=== PATIENT | female | born 1970 | race African-American/Black ===

== ENCOUNTER 2019-05-11 11:53 | Emergency (ER) | payer OTHER ==
[~2019-05-11] VITALS: Ht 167.6 cm; Wt 106.0 kg
[2019-05-11 12:22] VITALS: BP 125/76
[2019-05-11 13:04] LABS: MICROSCOPIC INDICATED
--- NOTE | 2019-05-11 13:07 | NUR ---
BACK PAIN AND CHEST PAIN. HANDS ARE GETTING NUMB AND LEFT FACE SEEMS NUMB. STATES NO MEDICAL HX. STATES TOOK ALEVE LAST NIGHT.
--- NOTE | 2019-05-11 13:13 | NUR ---
CORRECTION PATIENT STATES TINGLING NOT NUMB FEELING. PATIENT ON CONTINUOUS SPOUTER AND VS MONITORED
--- NOTE | 2019-05-11 14:27 | NUR ---
Patient/Caregiver given discharge instructions and they have confirmed that they understand the instructions. Patient ambulatory with steady gait. pt left with all personal belongings.
== END 2019-05-11 14:30 | disposition home or self-care (01) ==
LOC: ED 14:00
DX: N30.00 Acute cystitis without hematuria (principal)
CPT/HCPCS: 81001; 99283

== ENCOUNTER 2019-05-14 17:29 | Emergency (ER) | payer SELFPAY ==
[~2019-05-14] VITALS: Ht 167.6 cm; Wt 107.3 kg
[2019-05-14 19:25] LABS: BASOPHILS # (AUTO) 0.03 x10^3/uL (0-0.1); BASOPHILS % (AUTO) 0 % (0-1); EOSINOPHILS # (AUTO) 0.12 x10^3/uL (0-0.4); EOSINOPHILS % (AUTO) 2 % (1-7); LYMPHOCYTES # (AUTO) 2.64 x10^3/uL (1-3.4); LYMPHOCYTES % (AUTO) 40 % (22-44); MD NO; MEAN CORPUSCULAR HEMOGLOBIN 28.4 pg (27.0-34.8); MEAN CORPUSCULAR HGB CONC 31.7 g/dL (32.4-35.8); MEAN CORPUSCULAR VOLUME 89.6 fL (80-100); MEAN PLATELET VOLUME 8.5 fL (7.4-10.4); MONOCYTES # (AUTO) 0.39 x10^3/uL (0.2-0.8); MONOCYTES % (AUTO) 6 % (2-9); NEUTROPHILS # (AUTO) 3.45 x10^3/uL (1.8-6.8); NEUTROPHILS % (AUTO) 52 % (42-75); PLATELET COUNT 254 x10^3/uL (130-400); RED CELL DISTRIBUTION WIDTH 13.4 % (9.6-15.2)
[2019-05-14 19:36] LABS: ALANINE AMINOTRANSFERASE 26 U/L (12-78); ALBUMIN 3.6 g/dL (3.4-5.0); ANION GAP 4 mmol/L (5-15); CALCIUM 8.5 mg/dL (8.5-10.1); CHLORIDE 110 mmol/L (98-107)
[2019-05-14 19:38] LABS: ALKALINE PHOSPHATASE 103 U/L (45-117); BILIRUBIN,TOTAL 0.2 mg/dL (0.2-1.0); CREATININE 0.83 mg/dL (0.55-1.02); TOTAL PROTEIN 7.4 g/dL (6.4-8.2)
[2019-05-14 19:50] LABS: HCG UR SG 1.023 (1.003-1.030)
[2019-05-14 19:57] LABS: CULTURE INDICATED? YES; MICROSCOPIC INDICATED
[2019-05-14] MEDS ORDERED: KETOROLAC 30 MG/1 ML IM ONE (20:00)
--- NOTE | 2019-05-14 20:10 | NUR ---
patient reports not feeling well. When probed further patient still unable to narrow down or describe or pinpoint discomfort. Reports just a general feeling of "Not feeling well." Awaiting urine results and recheck.
[2019-05-14] MEDS ORDERED: KETOROLAC 30 MG/1 ML ONE (20:38)
--- NOTE | 2019-05-14 20:48 | NUR ---
Provided medication per MAR. Still feels "off" prefers lights and tv off. Awaiting response and labs.
[2019-05-14] MEDS ORDERED: CEFTRIAXONE 1,000 MG IM ONE (21:30)
[2019-05-14] MEDS ORDERED: LIDOCAINE-MPF 1%, 2ML ONE (22:07)
[2019-05-14] MEDS ORDERED: CEFTRIAXONE 1,000 MG ONE (22:08)
[2019-05-14 22:20] VITALS: BP 131/91
== END 2019-05-14 22:23 | disposition home or self-care (01) ==
LOC: ED 21:49
DX: N10 Acute pyelonephritis (principal); N39.0 Urinary tract infection, site not specified; J45.909 Unspecified asthma, uncomplicated; Z90.710 Acquired absence of both cervix and uterus
CPT/HCPCS: 36415; 74176; 80053; 81001; 81025; 83690; 85025; 87086; 96372; 99284; J0696; J1885